=== PATIENT | male | born 1950 | race Caucasian/White ===

== ENCOUNTER 2017-04-13 10:43 | Day surgery (SDC) | payer MEDICARE ==
[~2017-04-13] VITALS: Ht 175.3 cm; Wt 96.6 kg
[~2017-04-13 10:43] MED LIST: AMLO5 PO; Aspir 8181 MG PO; Aspirin EC81 MG PO; HYDCHL12.5 PO; LIVALO2 MG PO; LOSA50 PO; Norco 10-325 T1 EACH PO; ROSU10TA PO
== END 2017-04-13 14:47 | disposition home or self-care (01) ==
LOC: ORSCMMR 10:43
PROVIDERS: Surgery
PROC: 0DJD8ZZ Inspection of Lower Intestinal Tract, Via Natural or Artificial Opening Endoscopic (ICD-10-PCS; principal; 2017-04-13 12:00)
DX: Z12.11 Encounter for screening for malignant neoplasm of colon (principal); K57.30 Diverticulosis of large intestine without perforation or abscess without bleeding; Z86.010 Personal history of colon polyps; Z80.0 Family history of malignant neoplasm of digestive organs; Z87.891 Personal history of nicotine dependence; E78.5 Hyperlipidemia, unspecified; I10 Essential (primary) hypertension; N40.0 Benign prostatic hyperplasia without lower urinary tract symptoms; Z79.82 Long term (current) use of aspirin; Z79.899 Other long term (current) drug therapy
CPT/HCPCS: J7120

== ENCOUNTER 2017-08-24 17:38 | Emergency (ER) | payer MEDICARE ==
[~2017-08-24] VITALS: Ht 172.7 cm; Wt 79.4 kg
== END 2017-08-24 18:45 | disposition home or self-care (01) ==
LOC: ER 17:38
DX: R33.9 Retention of urine, unspecified (principal); Z88.8 Allergy status to other drugs, medicaments and biological substances; Z79.899 Other long term (current) drug therapy; Z87.891 Personal history of nicotine dependence
CPT/HCPCS: 51702; 99282

== ENCOUNTER 2018-03-23 07:04 | Day surgery (SDC) | payer MEDICARE ==
[~2018-03-23] VITALS: Ht 175.3 cm; Wt 90.8 kg
[~2018-03-23 07:04] MED LIST changes: +ADULT ASPIRIN R81 MG PO; +LIVALO1 MG PO
[2018-03-23] MEDS ORDERED: TAMS.4ER (07:45)
--- NOTE | 2018-03-23 07:49 | NUR ---
03/23/18 0749 Mirtha Gar PT RESTING IN BED, DISCUSSED TEACHING AND ANSWERED QUESTIONS. AT BEDSIDE, CALL LIGHT IN REACH.
--- NOTE | 2018-03-23 13:08 | NUR ---
03/23/18 1308 Yvon Pavon LATE ENTRY PATIENT REPORTS 5/10 PAIN AT SURGICAL SITE, PER MD ORDERS GAVE IV PAIN MEDICATION, WILL CONTINUE TO MONITOR. PATIENT VSS
--- NOTE | 2018-03-23 13:23 | NUR ---
03/23/18 1323 Yvon Pavon LATE ENTRY NARRATIVE PATIENT INTO SDU RECLINER RESTING, SPOUSE IS CHAIRSIDE. PATIENT VSS, TOLERATING PO FLUIDS WELL. PATIENT REPORTS 5/10 PAIN AT SURGICAL SITE, PER MD ORDERS GAVE IV PAIN MEDICATION, WILL CONTINUE TO MONITOR. PATIENT HAVING URGES TO URINATE, IMMEDIATELY GIVEN URINAL TO VOID, 200ML VOIDED @1140. PATIENT REPORTS 5/10 PAIN AT SURGICAL SITE ONLY WHEN SWALLOWING OTHERWISE IS TOLERABLE. GAVE REPORT TO [facility]ALIA RN @1150 AND SHE TOOK OVER PATIENT CARE.
== END 2018-03-23 12:32 | disposition home or self-care (01) ==
LOC: ORSCSDS 07:04
PROVIDERS: Otolaryngology
PROC: 0GTK0ZZ Resection of Thyroid Gland, Open Approach (ICD-10-PCS; principal; 2018-03-23 08:00)
DX: C73 Malignant neoplasm of thyroid gland (principal); I10 Essential (primary) hypertension; Z79.899 Other long term (current) drug therapy
CPT/HCPCS: 88307; J0330; J1100; J2250; J3010; J7120